=== PATIENT | female | born 1970 | race Two or more races ===

== ENCOUNTER 2018-02-11 03:26 | Emergency (ER) | payer OTHER ==
[~2018-02-11] VITALS: Ht 162.6 cm; Wt 124.3 kg
[~2018-02-11 03:26] MED LIST: ADVAIR 2501 DISK W/1; DULERA; DULERA 100 MCG/13 GM; LYRICA PO; MICARDIS HCT 41 EACH PO; MICARDIS40 MG; NABUMETONE500 MG PO; NASONEX17 GM; PERCOCET 5/3251 TAB PO; PHENABID TAB1 TAB.SA; PRISTIQ ER50 MG PO; SINGULAIR10 MG PO; SYNTHROID200 MCG; SYNTHROID200 MCG PO; VOLTAREN100 GM TP; WELLBUTRIN SR150 MG; XOPENEX HFA15 GM IH; XOPENEX1.25 MG/0.
[2018-02-11] MEDS ORDERED: PEPCID40 MG PO (08:05)
[2018-02-11] MEDS ORDERED: LEVSIN/SL0.125 MG SL (08:05)
[2018-02-11] MEDS ORDERED: ZOFRAN ODT8 MG PO (08:05)
== END 2018-02-11 09:31 | disposition home or self-care (01) ==
LOC: ER 03:26
DX: K52.9 Noninfective gastroenteritis and colitis, unspecified (principal)

== ENCOUNTER 2021-06-16 07:53 | Emergency (ER) | payer OTHER ==
[~2021-06-16] VITALS: Ht 160 cm; Wt 131.5 kg
[~2021-06-16 07:53] MED LIST changes: +LEVSIN/SL0.125 MG SL; +PEPCID40 MG PO; +ZOFRAN ODT8 MG PO
[2021-06-16] MEDS ORDERED: GABAPENTIN600 MG PO (08:09)
[2021-06-16] MEDS ORDERED: GLUMETZA500 MG PO (08:10)
[2021-06-16] MEDS ORDERED: KETO10TA2 PO (09:17)
[2021-06-16] MEDS ORDERED: NORFLEX100MG PO (09:17)
== END 2021-06-16 09:35 | disposition home or self-care (01) ==
LOC: ER 07:53
DX: M54.50 Low back pain, unspecified (principal); I10 Essential (primary) hypertension; E03.9 Hypothyroidism, unspecified

== ENCOUNTER 2022-09-14 08:27 | Day surgery (SDC) | payer OTHER ==
[~2022-09-14] VITALS: Ht 162.6 cm; Wt 118.8 kg
[~2022-09-14 08:27] MED LIST changes: +CYCLOBENZAPRINE10 MG PO; +DICLOFENAC POTA50 MG PO; +GABAPENTIN600 MG PO; +GLUMETZA500 MG PO; +KETO10TA2 PO; +NORFLEX100MG PO; +[UNRECOGNIZED DRUG - OTHER] IH
== END 2022-09-14 21:05 | disposition home or self-care (01) ==
LOC: CIR.AMB 08:27
PROVIDERS: ATTEND Obstetrics & Gynecology
DX: R93.89 Abnormal findings on diagnostic imaging of other specified body structures (principal); N84.0 Polyp of corpus uteri; Z88.2 Allergy status to sulfonamides; Z20.822 Contact with and (suspected) exposure to COVID-19; I10 Essential (primary) hypertension; E11.9 Type 2 diabetes mellitus without complications; E03.9 Hypothyroidism, unspecified; Z79.84 Long term (current) use of oral hypoglycemic drugs